=== PATIENT | male | born 1960 | race Caucasian/White ===

== ENCOUNTER 2019-06-12 11:51 | Emergency (ER) | payer OTHER ==
[2019-06-12 12:11] VITALS: RESP 18
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
[2019-06-12 12:47] LABS: Appearance,Urine Cloudy (Clear); Bacteria,Urine Moderate /hpf; Bilirubin,Urine Negative (Negative); Blood,Urine Small (Negative); Color,Urine Yellow; Glucose,Urine (UA) Negative (Negative); Ketones,Urine Trace (Negative); Leukocyte Esterase,Urine Large (Negative); Mucus,Urine Rare /hpf; Nitrite,Urine Positive (Negative); PH, Urine 5.5 (5.0-8.0); Protein,Urine 1+ (Negative); RBC,Urine 6 /hpf (0-5); Squamous Epithelial Cell,Urine 2 /hpf (0-4); Urobilinogen,Urine <2.0 mg/dL (<2.0); WBC,Urine >182 /hpf (0-5)
[2019-06-12 13:21] VITALS: TEMP 98.7
[2019-06-12] MEDS ORDERED: NITROFURANTOIN MONOHYD/M-CRYST 100 MG CAP PO STA (13:47)
[2019-06-12 15:37] VITALS: BP 135/70; PULSE 72
== END 2019-06-12 14:30 | disposition home or self-care (01) ==
LOC: EC 11:51
DX: N39.0 Urinary tract infection, site not specified (principal); M62.569 Muscle wasting and atrophy, not elsewhere classified, unspecified lower leg; R53.83 Other fatigue; E11.9 Type 2 diabetes mellitus without complications; Z87.891 Personal history of nicotine dependence; Z88.2 Allergy status to sulfonamides; Z79.84 Long term (current) use of oral hypoglycemic drugs; Z86.14 Personal history of Methicillin resistant Staphylococcus aureus infection; Z87.448 Personal history of other diseases of urinary system; Z86.2 Personal history of diseases of the blood and blood-forming organs and certain disorders involving the immune mechanism; Z99.3 Dependence on wheelchair; Z80.51 Family history of malignant neoplasm of kidney
CPT/HCPCS: 81001; 87077; 87086; 87186; 99283

== ENCOUNTER 2019-06-15 11:44 | Inpatient (IN) | payer OTHER ==
[2019-06-15] MEDS ORDERED: ACETAMINOPHEN TAB 500 MG TAB PO STA (12:38)
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
[2019-06-15] MEDS: SODIUM CHLORIDE 0.9% 500 ML 500 ML IV SCH ×3 (13:41→15:57)
--- NOTE | 2019-06-15 14:02 | XR ---
EXAMINATION TYPE: XR chest 2V DATE OF EXAM: 06/15/2019 COMPARISON: 10/31/2015 HISTORY: Fever and hypoxemia TECHNIQUE: Frontal and lateral views of the chest are obtained. FINDINGS: New pulmonary vascular congestion throughout, more pronounced on the left than the right l ikely given rotation. Mediastinum is shifted to the right secondary to rotation. Cardiomediastinal si lhouette is enlarged. Somewhat type: Ventilatory lungs on the lateral view. No sizable pleural effusi on. IMPRESSION: Pulmonary vascular congestion, correlate for congestive heart failure.
[2019-06-15] MEDS ORDERED: cefTRIAXone IN SWFI 1,000 MG/10 ML SYRINGE IVP STA (14:03)
[2019-06-15] MEDS ORDERED: PIPERACILLIN-TAZOBACTAM 3.375 GM in SODIUM CHLORIDE 0.9% 100 ML IVPB STA (14:04)
[2019-06-15 14:14] LABS: Basophils # (A) 0.3 k/uL (0-0.2); Basophils % (A) 3 %; Eosinophils % (A) 0 %; HCT 37.8 % (39.0-53.0); HGB 12.4 gm/dL (13.0-17.5); Lymphocytes # (A) 0.6 k/uL (1.0-4.8); Lymphocytes % (A) 6 %; MCH 29.2 pg (25.0-35.0); MCHC 32.7 g/dL (31.0-37.0); MCV 89.4 fL (80.0-100.0); Mean Platelet Volume 9.1; Monocytes # (A) 0.4 k/uL (0-1.0); Monocytes % (A) 4 %; Neutrophils % (A) 82 %; Platelet Count 194 k/uL (150-450); RBC 4.24 m/uL (4.30-5.90); RDW 14.5 % (11.5-15.5); WBC 9.7 k/uL (3.8-10.6)
[2019-06-15 14:21] LABS: Partial Thromboplastin Time 23.6 sec (22.0-30.0); Prothrombin Time 10.7 sec (9.0-12.0)
[2019-06-15 14:26] LABS: ALT 60 U/L (4-49); AST 50 U/L (17-59); African American GFR (CKD) >90 (>60 ml/min/1.73 sqM); Albumin 3.3 g/dL (3.5-5.0); Alkaline Phosphatase 79 U/L (38-126); Anion Gap 12 mmol/L; Blood Urea Nitrogen 20 mg/dL (9-20); Calcium 8.9 mg/dL (8.4-10.2); Carbon Dioxide 23 mmol/L (22-30); Chloride 95 mmol/L (98-107); Glucose 371 mg/dL (74-99); Non-African American GFR(CKD) >90 (>60 ml/min/1.73 sqM); Potassium 4.5 mmol/L (3.5-5.1); Sodium 130 mmol/L (137-145); Total Bilirubin 0.9 mg/dL (0.2-1.3); Total Protein 6.1 g/dL (6.3-8.2)
[2019-06-15] MEDS ORDERED: FUROSEMIDE 10 MG/ML 4 ML VIAL IV STA (15:09)
[2019-06-15 15:12] LABS: Appearance,Urine Cloudy (Clear); Bacteria,Urine Rare /hpf; Bilirubin,Urine Negative (Negative); Blood,Urine Trace (Negative); Budding Yeast,Urine Rare /hpf; Color,Urine Yellow; Glucose,Urine (UA) 4+ (Negative); Hyaline Casts,Urine 19 /lpf (0-2); Ketones,Urine Negative (Negative); Leukocyte Esterase,Urine Trace (Negative); Mucus,Urine Rare /hpf; Nitrite,Urine Negative (Negative); Protein,Urine 2+ (Negative); RBC,Urine 3 /hpf (0-5); Specific Gravity,Urine 1.025 (1.001-1.035); Sperm,Urine Rare /hpf; Squamous Epithelial Cell,Urine 1 /hpf (0-4); Urobilinogen,Urine <2.0 mg/dL (<2.0); WBC,Urine 14 /hpf (0-5)
[2019-06-15] MEDS ORDERED: PIPERACILLIN-TAZOBACTAM 3.375 GM in SODIUM CHLORIDE 0.9% 100 ML IVPB SCH (16:00)
[2019-06-15] MEDS ORDERED: AZITHROMYCIN 500 MG in SODIUM CHLORIDE 0.9% 250 ML IVPB STA (16:42)
[2019-06-15] MEDS ORDERED: HEPARIN SODIUM,PORCINE 5,000 UNIT/ML 1 ML VIAL IV ONE (17:22)
[2019-06-15] MEDS ORDERED: HEPARIN SODIUM,PORCINE 5,000 UNIT/ML 1 ML VIAL IV PRN (17:22)
[2019-06-15] MEDS ORDERED: HEPARIN SOD,PORK IN 0.45% NACL 25,000 UNIT in 0.45% NACL 1 250ML.BAG IV SCH (17:30)
[2019-06-15] MEDS ORDERED: VANCOMYCIN IV PER PHARMACY 1 EACH MISC MISCELLANE PRN (17:32)
--- NOTE | 2019-06-15 17:46 | CT ---
EXAMINATION TYPE: CT chest angio for PE DATE OF EXAM: 06/15/2019 COMPARISON: None HISTORY: Fever, shortness of breath. CT DLP: 978.4 mGycm Automated exposure control for dose reduction was used. CONTRAST: Performed with IV Contrast, patient injected with 100 mL of Isovue 370. There are 3-D post processed images. FINDINGS: There is intact thoracic aorta. There is no aneurysm or dissection. Heart appears fairly normal. Ther e is no pericardial effusion. There is no pleural effusion. There is no mediastinal adenopathy. There are no hilar masses. There are large central pulmonary arteries. There is some mild subsegmental ate lectasis at the lung bases. There is no suspicious pulmonary mass. There is fairly normal contrast opacification of the pulmonary arteries. I see no filling defect. The bony thorax is intact. There is no thoracic compression fracture. I see no bony destructive process. IMPRESSION: No evidence of pulmonary embolism. Mild subsegmental atelectasis at the lung bases. Normal heart. Lar ge central pulmonary arteries could relate to pulmonary hypertension.
[2019-06-15] MEDS ORDERED: KETOROLAC 30 MG/ML 1 ML VIAL IVP PRN (18:03)
[2019-06-15] MEDS ORDERED: IBUPROFEN 400 MG TAB PO PRN (18:03)
[2019-06-15] MEDS ORDERED: NALOXONE 0.4 MG/ML 1 ML VIAL IV PRN (18:03)
[2019-06-15] MEDS ORDERED: ACETAMINOPHEN TAB 325 MG TAB PO PRN (18:03)
[2019-06-15] MEDS ORDERED: MORPHINE SULFATE 4 MG/ML SYRINGE IV PRN (18:03)
[2019-06-15] MEDS ORDERED: ASPIRIN 325 MG TAB PO STA (18:06)
[2019-06-15] MEDS ORDERED: VANCOMYCIN 2,000 MG in SODIUM CHLORIDE 0.9% 500 ML 500 ML IVPB ONE ×2 (18:45→22:15)
[2019-06-15 21:41] LABS: Glucose,Whole Blood 327 mg/dL (75-99)
[2019-06-15] MEDS: SODIUM CHLORIDE 0.9% 1,000 ML IV SCH ×2 (21:47→22:09)
[2019-06-15] MEDS: FUROSEMIDE 10 MG/ML 4 ML VIAL IV SCH (22:03)
[2019-06-15] MEDS: INSULIN ASPART (NovoLOG) 100 UNIT/ML VIAL SQ SCH (22:04)
[2019-06-16] MEDS ORDERED: ONDANSETRON 4 MG/2 ML VIAL IVP PRN (01:26)
[2019-06-16] MEDS: PIPERACILLIN-TAZOBACTAM 3.375 GM in SODIUM CHLORIDE 0.9% 100 ML IVPB SCH ×2 (01:41→11:40)
[2019-06-16] MEDS: SODIUM CHLORIDE 0.9% 1,000 ML IV SCH ×2 (04:36→12:51)
[2019-06-16] MEDS: FUROSEMIDE 10 MG/ML 4 ML VIAL IV SCH ×3 (05:53→20:49)
[2019-06-16] MEDS ORDERED: VANCOMYCIN 2,000 MG in SODIUM CHLORIDE 0.9% 500 ML 500 ML IVPB SCH (06:00)
[2019-06-16 06:30] LABS: Glucose,Whole Blood 290 mg/dL (75-99)
[2019-06-16] MEDS: INSULIN ASPART (NovoLOG) 100 UNIT/ML VIAL SQ SCH ×4 (06:33→22:22)
[2019-06-16 09:05] LABS: HGB 11.8 gm/dL (13.0-17.5); MCH 28.9 pg (25.0-35.0); MCHC 31.8 g/dL (31.0-37.0); MCV 90.7 fL (80.0-100.0); Mean Platelet Volume 9.2; Platelet Count 217 k/uL (150-450); RBC 4.08 m/uL (4.30-5.90); RDW 14.7 % (11.5-15.5); WBC 10.7 k/uL (3.8-10.6)
[2019-06-16 10:54] LABS: Band Neutrophils % 3 %; Lymphocytes # (M) 0.75 k/uL (1.0-4.8); Metamyelocytes # (M) 0.11 k/uL (0); Metamyelocytes % 1 %; Monocytes # (M) 0.86 k/uL (0-1.0); Neutrophils % (M) 83 %; Nucleated Red Blood Cells 0 /100 WBC (0-0); Total Cells Counted 200
[2019-06-16 11:00] LABS: Anisocytosis (M) Present; Poikilocytosis (M) Present; Toxic Granulation Present
[2019-06-16] MEDS ORDERED: HEPARIN SODIUM,PORCINE 5,000 UNIT/ML 1 ML VIAL IV STA (11:26)
[2019-06-16] MEDS ORDERED: SODIUM CHLORIDE 0.9% 1,000 ML IV SCH (11:30)
[2019-06-16 12:06] LABS: Glucose,Whole Blood 242 mg/dL (75-99)
[2019-06-16] MEDS: MEROPENEM 2 GM in SODIUM CHLORIDE 0.9% 100 ML IVPB SCH ×2 (12:51→20:49)
--- NOTE | 2019-06-16 13:00 | ECHOF ---
Referral Reason:CHF? MEASUREMENTS -------- HEIGHT: 182.9 cm WEIGHT: 127.0 kg BP: 147/94 RVIDd: 4.3 cm (< 3.3) IVSd: 1.8 cm (0.6 - 1.1) LVIDd: 3.6 cm (3.9 - 5.3) LVPWd: 1.4 cm (0.6 - 1.1) IVSs: 1.5 cm LVIDs: 3.1 cm LVPWs: 1.2 cm Ao Diam: 3.8 cm (2.0 - 3.7) MV EXCURSION: 26.551 mm (> 18.000) MV EF SLOPE: 96 mm/s (70 - 150) EPSS: 0.3 cm MV E Higinio: 1.31 m/s MV DecT: 185 ms MV A Higinio: 1.17 m/s MV E/A Ratio: 1.12 RAP: 5.00 mmHg RVSP: 40.65 mmHg FINDINGS -------- Sinus rhythm. Morbid Obesity This was a techncally difficult study with suboptimal views, , Lumason utilized for enhancement of im ages. The left ventricular size is normal. Left ventricular wall thickness is normal. Overall left vent ricular systolic function is mild-moderately impaired with, an EF between 40 - 45 %. The right ventricle is severely enlarged. The left atrial size is normal. The right atrial size is normal. 5.0mg OF Lumason UTLIZED: 2 OR MORE WALL SEGMENTS NOT VISUALIZED. There is mild aortic valve sclerosis. There is no evidence of aortic regurgitation. Mild mitral annular calcification present. Mild mitral regurgitation is present. Mild tricuspid regurgitation present. There is mild pulmonary hypertension. The right ventricular systolic pressure, as measured by Doppler, is 40.65mmHg. The pulmonic valve was not well visualized. The aortic root size is normal. Echo free space represents a pericardial fat pad. CONCLUSIONS -------- 1. Sinus rhythm. 2. Morbid Obesity 3. This was a techncally difficult study with suboptimal views, , Lumason utilized for enhancement of images. 4. The left ventricular size is normal. 5. Left ventricular wall thickness is normal. 6. Overall left ventricular systolic function is mild-moderately impaired with, an EF between 40 - 45 %. 7. The right ventricle is severely enlarged. 8. The left atrial size is normal. 9. The right atrial size is normal. 10. 5.0mg OF Lumason UTLIZED: 2 OR MORE WALL SEGMENTS NOT VISUALIZED. 11. There is mild aortic valve sclerosis. 12. Mild mitral annular calcification present. 13. Mild mitral regurgitation is present. 14. Mild tricuspid regurgitation present. 15. There is mild pulmonary hypertension. 16. The right ventricular systolic pressure, as measured by Doppler, is 40.65mmHg. 17. The pulmonic valve was not well visualized. 18. The aortic root size is normal. 19. Echo free space represents a pericardial fat pad. SCHO[employer]GE PROGRAM TEACHER: Dorothy Richardson RDCS
[2019-06-16 14:12] VITALS: BMI 37.3
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
[2019-06-16 17:36] LABS: Glucose,Whole Blood 287 mg/dL (75-99)
[2019-06-16] MEDS: FAMOTIDINE 20 MG TAB PO SCH (20:49)
[2019-06-16 21:22] LABS: Glucose,Whole Blood 226 mg/dL (75-99)
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
[2019-06-16] MEDS ORDERED: BISACODYL 10 MG SUPP RECTAL PRN (22:09)
[2019-06-17] MEDS ORDERED: MEROPENEM 1 GM in SODIUM CHLORIDE 0.9% 100 ML IVPB SCH ×2
[2019-06-17] MEDS: MEROPENEM 1 GM in SODIUM CHLORIDE 0.9% 100 ML IVPB SCH ×3 (03:44→20:35)
[2019-06-17] MEDS ORDERED: VANCOMYCIN TROUGH DUE 1 EACH MISC MISCELLANE ONE (05:00)
[2019-06-17 06:02] LABS: Glucose,Whole Blood 217 mg/dL (75-99)
[2019-06-17] MEDS: INSULIN ASPART (NovoLOG) 100 UNIT/ML VIAL SQ SCH ×4 (06:25→20:37)
[2019-06-17 06:40] LABS: Basophils # (A) 0.1 k/uL (0-0.2); Basophils % (A) 1 %; Eosinophils # (A) 0.1 k/uL (0-0.7); Eosinophils % (A) 1 %; Lymphocytes # (A) 0.8 k/uL (1.0-4.8); Lymphocytes % (A) 8 %; MCH 28.6 pg (25.0-35.0); MCHC 31.5 g/dL (31.0-37.0); MCV 90.7 fL (80.0-100.0); Mean Platelet Volume 8.6; Monocytes # (A) 0.4 k/uL (0-1.0); Monocytes % (A) 3 %; Neutrophils # (A) 9.3 k/uL (1.3-7.7); Neutrophils % (A) 84 %; Platelet Count 289 k/uL (150-450); RBC 4.19 m/uL (4.30-5.90); RDW 14.4 % (11.5-15.5); WBC 11.1 k/uL (3.8-10.6)
[2019-06-17 06:54] LABS: African American GFR (CKD) >90 (>60 ml/min/1.73 sqM); Anion Gap 7 mmol/L; Blood Urea Nitrogen 23 mg/dL (9-20); Calcium 7.9 mg/dL (8.4-10.2); Carbon Dioxide 31 mmol/L (22-30); Chloride 98 mmol/L (98-107); Glucose 217 mg/dL (74-99); Non-African American GFR(CKD) >90 (>60 ml/min/1.73 sqM); Potassium 4.1 mmol/L (3.5-5.1); Sodium 136 mmol/L (137-145)
--- NOTE | 2019-06-17 09:43 | XR ---
EXAMINATION TYPE: XR chest 2V DATE OF EXAM: 06/17/2019 COMPARISON: 06/15/2019 HISTORY: Shortness of breath TECHNIQUE: Frontal and lateral views of the chest are obtained. FINDINGS: Cardiomediastinal silhouette is enlarged. Multifocal patchy opacities are seen on the late ral view, likely edema. No sizable pleural effusion or pneumothorax. Osseous structures are grossly i ntact. IMPRESSION: Multifocal centralized patchy opacities on the lateral view may represent pulmonary shyam a as the cardiomediastinal silhouette is again enlarged. Correlate for congestive heart failure.
[2019-06-17] MEDS: FAMOTIDINE 20 MG TAB PO SCH ×2 (09:59→20:36)
[2019-06-17] MEDS: ENOXAPARIN 40 MG/0.4 ML SYRINGE SQ SCH ×2 (09:59→10:19)
[2019-06-17] MEDS: FUROSEMIDE 10 MG/ML 4 ML VIAL IV SCH ×2 (10:00→20:36)
[2019-06-17 12:11] LABS: Glucose,Whole Blood 232 mg/dL (75-99)
--- NOTE | 2019-06-17 15:40 | P.PN ---
Subjective Progress Note Date: 06/17/19 Principal diagnosis: 59.-year-old male came in with fever and body aches. Patient does straight catheter is a has been doing this for years patient was admitted in the past for urinary tract infection with multiple bacteria drug-resistant Pseudomonas. Patient was seen in ER recently about the 3-4 days ago at the time urine cultures were done showing E. coli which is years. Coli. Patient is septic and hyponatremic. patient has mildly elevated troponin seconded to sepsis. Patient was later found to have bacteremia with gram-negative rods. Patient was started on meropenem because of ESBL Zosyn and vancomycin will risk and urine. Patient does have a blister in the left leg although doesn't appear to be infected and the right leg there is some redness in the first toe but doesn't appear to be infected either. There is mild elevation of BNP there is a concern about the congestive heart failure because of bronchovascular prominence on the chest x-ray. 06/17/2019 Patient is lying in bed in a semi-upright position and is stating he is short of breath with no improvement from yesterday. Blood cultures continue to show E. coli and repeat blood cultures will be done. Infectious disease is following. Cardiology is also following. Patient is currently maintained on IV antibiotics in the form of meropenem and will continue at this time. Patient will also continue on IV diuresis. Repeat chest x-ray today shows multifocal centralize patchy opacities that may represent pulmonary edema. Patient normally straight caths himself a few times a day but has been having difficulty given his current situation and worsening shortness of breath and an indwelling Du catheter was placed. Patient does have a history of frequent urinary tract infections. Objective - Vital Signs Vital signs: Vital Signs Temp 99.2 F 06/17/19 11:46 Pulse 108 H 06/17/19 11:46 Resp 20 06/17/19 11:46 BP 180/89 06/17/19 11:46 Pulse Ox 93 L 06/17/19 11:46 Intake & Output 06/16/19 06/17/19 06/17/19 18:59 06:59 18:59 Intake Total 369.316 200 360 Output Total 1780 800 200 Balance -1410.684 -600 160 Weight 125 kg 152.5 kg Intake: Intake, IV Titration 129.316 200 Amount Heparin Sod,Pork in 0.45% 129.316 NaCl 25,000 unit In 0.45 % NaCl 1 250ml.bag @ 7. 874 UNITS/KG/HR 10 mls/hr IV .Q24H [facility] Rx#: [id number] Meropenem 2 gm In Sodium 200 Chloride 0.9% 100 ml @ 200 mls/hr IVPB Q8H [facility] Rx#:[id number] Oral 240 360 Output: Urine 1780 800 200 Other: Voiding Method Indwelling Catheter Indwelling Catheter Indwelling Catheter - Exam GENERAL: The patient is alert and oriented x3, not in any acute distress. Obese HEENT: Pupils are round and equally reacting to light. EOMI. No scleral icterus. No conjunctival pallor. Normocephalic, atraumatic. No pharyngeal erythema. No thyromegaly. CARDIOVASCULAR: S1 and S2 present. No murmurs, rubs, or gallops. PULMONARY: Diminished breath sounds at the bases, no wheezing or crackles noted. ABDOMEN: Soft, nontender, nondistended, normoactive bowel sounds. No palpable organomegaly. MUSCULOSKELETAL: No joint swelling or deformity. EXTREMITIES: No cyanosis, clubbing, or pedal edema. NEUROLOGICAL: Gross neurological examination did not reveal any new focal deficits. Patient does have paraplegia of lower limbs SKIN: Patient has a blister on the left calcaneus and some redness in the right great toe - Labs CBC & Chem 7: 06/17/19 05:21 06/17/19 05:21 Labs: Abnormal Lab Results - Last 24 Hours (Table) 06/16/19 06/16/19 06/17/19 Range/Units 17:34 21:21 05:21 WBC 11.1 H (3.8-10.6) k/uL RBC 4.19 L (4.30-5.90) m/uL Hgb 12.0 L (13.0-17.5) gm/dL Hct 38.0 L (39.0-53.0) % Neutrophils # 9.3 H (1.3-7.7) k/uL Lymphocytes # 0.8 L (1.0-4.8) k/uL Sodium (137-145) mmol/L Carbon Dioxide (22-30) mmol/L BUN (9-20) mg/dL Creatinine (0.66-1.25) mg/dL Glucose (74-99) mg/dL POC Glucose (mg/dL) 287 H 226 H (75-99) mg/dL Calcium (8.4-10.2) mg/dL 06/17/19 06/17/19 06/17/19 Range/Units 05:21 06:01 12:02 WBC (3.8-10.6) k/uL RBC (4.30-5.90) m/uL Hgb (13.0-17.5) gm/dL Hct (39.0-53.0) % Neutrophils # (1.3-7.7) k/uL Lymphocytes # (1.0-4.8) k/uL Sodium 136 L (137-145) mmol/L Carbon Dioxide 31 H (22-30) mmol/L BUN 23 H (9-20) mg/dL Creatinine 0.62 L (0.66-1.25) mg/dL Glucose 217 H (74-99) mg/dL POC Glucose (mg/dL) 217 H 232 H (75-99) mg/dL Calcium 7.9 L (8.4-10.2) mg/dL Microbiology - Last 24 Hours (Table) 06/15/19 13:13 Blood Culture Gram Stain - Final Blood Blood Culture - Final Escherichia coli 06/16/19 11:51 Blood Culture Gram Stain - Preliminary Blood Blood Culture - Preliminary Escherichia coli 06/16/19 11:51 Blood Culture - Final Blood 06/15/19 Unknown Urine Culture - Preliminary Urine,Clean Catch Assessment and Plan Assessment: -Severe sepsis and bacteremia secondary to possible urinary tract infection patient has gram-negative rods most probably E. coli which he had a urinary tract infection recently patient was switched to meropenem and will continue at this time. Infectious disease is following. -Hyponatremia possibility of hypervolemic hyponatremia we'll give him Lasix today and will check his creatinine tomorrow IV fluids were discontinued. Creatinine today is 0.62 and will continue with IV Lasix at this time. -Congestive heart failure chronic systolic dysfunction with possibly of mild acute exacerbation. Echo was done showing overall left ventricular systolic function is mild to moderately impaired with an EF between 40-45% -Elevated troponin secondary to sepsis cardiology was consulted. -Type 2 diabetes mellitus: Patient will be resumed on his home regimen along with sliding scale -DVT in the past presently not on any anticoagulation -Paraplegia: Supportive care for that -DVT prophylaxis with Lovenox -GI prophylaxis with Pepcid
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
[2019-06-17 16:51] LABS: Glucose,Whole Blood 306 mg/dL (75-99)
[2019-06-17] MEDS: CARVEDILOL 6.25 MG TAB PO SCH (17:40)
[2019-06-17 20:29] LABS: Glucose,Whole Blood 227 mg/dL (75-99)
--- NOTE | 2019-06-17 23:16 | PN ---
PROGRESS NOTE DATE OF SERVICE: 06/17/2019 REASON FOR FOLLOWUP: ESBL E coli bacteremia and UTI. INTERVAL HISTORY: The patient is currently afebrile. The patient has been breathing comfortably. Denies having any chest pain or shortness of breath or cough. No abdominal pain and diarrhea. PHYSICAL EXAMINATION: Blood pressure 117/60 with a pulse of 102, temperature 99.7. He is 97% on 2 L nasal cannula. General description is a middle-aged male lying in bed in no distress. RESPIRATORY SYSTEM: Unlabored breathing. Clear to auscultation anteriorly. HEART: S1, S2. Regular rate and rhythm. ABDOMEN: Soft. No tenderness. LABS: Hemoglobin is 12, white count 11.1. BUN of 23, creatinine 0.62. Blood culture from 06/16/19 positive. Blood culture done this morning is currently pending. DIAGNOSTIC IMPRESSION AND PLAN: Patient with Escherichia coli bacteremia. The pathogen in the blood is not ESBL compared to what he had in the urine on 06/12/19. We will keep the patient on meropenem at this point while waiting for the blood culture of 06/16/19 to be completed. Ultrasound of the kidneys to make sure no evidence of any obstructive uropathy or abscess. Once his blood cultures are negative, may get a midline for outpatient IV antibiotic therapy. Continue with supportive care. MMODL / IJN: [id number] /
[2019-06-18] MEDS: MEROPENEM 1 GM in SODIUM CHLORIDE 0.9% 100 ML IVPB SCH ×2 (04:36→12:13)
[2019-06-18] MEDS: INSULIN ASPART (NovoLOG) 100 UNIT/ML VIAL SQ SCH ×4 (06:20→21:05)
[2019-06-18] MEDS: CARVEDILOL 6.25 MG TAB PO SCH ×2 (06:20→18:10)
[2019-06-18 06:21] LABS: Glucose,Whole Blood 243 mg/dL (75-99)
[2019-06-18 06:40] LABS: Basophils # (A) 0.1 k/uL (0-0.2); Basophils % (A) 0 %; Eosinophils # (A) 0.1 k/uL (0-0.7); Eosinophils % (A) 1 %; HCT 40.1 % (39.0-53.0); HGB 12.6 gm/dL (13.0-17.5); Lymphocytes # (A) 1.1 k/uL (1.0-4.8); Lymphocytes % (A) 8 %; MCH 28.4 pg (25.0-35.0); MCHC 31.4 g/dL (31.0-37.0); MCV 90.4 fL (80.0-100.0); Mean Platelet Volume 7.9; Monocytes # (A) 0.5 k/uL (0-1.0); Monocytes % (A) 3 %; Neutrophils # (A) 12.1 k/uL (1.3-7.7); Neutrophils % (A) 84 %; Platelet Count 331 k/uL (150-450); RBC 4.44 m/uL (4.30-5.90); RDW 14.4 % (11.5-15.5); WBC 14.3 k/uL (3.8-10.6)
--- NOTE | 2019-06-18 08:23 | US ---
EXAMINATION TYPE: US kidneys/renal and bladder DATE OF EXAM: 06/18/2019 COMPARISON: KUB CLINICAL HISTORY: uti AND bacteremia. CHF, sepsis, and history of left lower pole renal calcification EXAM MEASUREMENTS: Right Kidney: 13.5 x 6.2 x 6.6 cm Left Kidney: 13.3 x 6.9 x 6.9 cm Post Void Residual Volume: not assessed as indwelling bladder catheter is present Right Kidney: No hydronephrosis or masses seen; crescent shaped area is seen adjacent to mid lower re nal cortex and suggests sonographic sweat sign for renal failure Left Kidney: No hydronephrosis or masses seen; crescent shaped area is seen adjacent to mid lower [place] al cortex and suggests sonographic sweat sign for renal failure Bladder: indwelling bladder catheter is noted within and therefore urinary bladder is nondistended an d not visualized. There is no evidence for hydronephrosis at this point in time. No nephrolithiasis is seen. No morris s are identified. IMPRESSION: Sonographic findings bilaterally suggesting renal failure with sonographic "sweat sign". No hydronephrosis of either kidney.
[2019-06-18 09:18] LABS: African American GFR (CKD) >90 (>60 ml/min/1.73 sqM); Anion Gap 11 mmol/L; Blood Urea Nitrogen 21 mg/dL (9-20); Carbon Dioxide 28 mmol/L (22-30); Chloride 98 mmol/L (98-107); Glucose 252 mg/dL (74-99); Non-African American GFR(CKD) >90 (>60 ml/min/1.73 sqM); Potassium 4.1 mmol/L (3.5-5.1); Sodium 137 mmol/L (137-145)
[2019-06-18] MEDS: ENOXAPARIN 40 MG/0.4 ML SYRINGE SQ SCH (09:20)
[2019-06-18] MEDS: FUROSEMIDE 10 MG/ML 4 ML VIAL IV SCH (09:24)
[2019-06-18] MEDS: FAMOTIDINE 20 MG TAB PO SCH ×2 (09:24→21:05)
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
[2019-06-18] MEDS: LISINOPRIL 5 MG TAB PO SCH (12:14)
[2019-06-18 12:32] LABS: Glucose,Whole Blood 282 mg/dL (75-99)
--- NOTE | 2019-06-18 14:31 | P.PN ---
Subjective Progress Note Date: 06/18/19 Principal diagnosis: 59.-year-old male came in with fever and body aches. Patient does straight catheter is a has been doing this for years patient was admitted in the past for urinary tract infection with multiple bacteria drug-resistant Pseudomonas. Patient was seen in ER recently about the 3-4 days ago at the time urine cultures were done showing E. coli which is years. Coli. Patient is septic and hyponatremic. patient has mildly elevated troponin seconded to sepsis. Patient was later found to have bacteremia with gram-negative rods. Patient was started on meropenem because of ESBL Zosyn and vancomycin will risk and urine. Patient does have a blister in the left leg although doesn't appear to be infected and the right leg there is some redness in the first toe but doesn't appear to be infected either. There is mild elevation of BNP there is a concern about the congestive heart failure because of bronchovascular prominence on the chest x-ray. 06/17/2019 Patient is lying in bed in a semi-upright position and is stating he is short of breath with no improvement from yesterday. Blood cultures continue to show E. coli and repeat blood cultures will be done. Infectious disease is following. Cardiology is also following. Patient is currently maintained on IV antibiotics in the form of meropenem and will continue at this time. Patient will also continue on IV diuresis. Repeat chest x-ray today shows multifocal centralize patchy opacities that may represent pulmonary edema. Patient normally straight caths himself a few times a day but has been having difficulty given his current situation and worsening shortness of breath and an indwelling Du catheter was placed. Patient does have a history of frequent urinary tract infections. 06/18/2019 Patient is lying in bed stating that his shortness of breath has slightly improved. Blood cultures continue to show E. coli with repeat blood cultures from the being negative thus far. Will repeat blood cultures daily until clearance. Infectious disease is following. Antibiotics have been transitioned to ceftriaxone and will continue at this time. Patient will likely need IV anti biotic therapy in the outpatient setting due to bacteremia. Patient denies any chest pain or palpitations at this time. Patient is afebrile. Patient denies any nausea or vomiting and has been tolerating diet. Patient's IV diuretics are being transitioned oral today. Objective - Vital Signs Vital signs: Vital Signs Temp 98.4 F 06/18/19 11:45 Pulse 95 06/18/19 11:45 Resp 18 06/18/19 11:45 BP 134/82 06/18/19 11:45 Pulse Ox 94 L 06/18/19 11:45 Intake & Output 06/17/19 06/18/19 06/18/19 18:59 06:59 18:59 Intake Total 1570 1178 Output Total 200 900 Balance 1370 -900 1178 Weight 151 kg Intake: Intake, IV Titration 100 100 Amount Meropenem 1 gm In Sodium 100 100 Chloride 0.9% 100 ml @ 200 mls/hr IVPB Q8H [facility] Rx#:[id number] Oral 1470 1078 Output: Urine 200 900 Other: Voiding Method Indwelling Catheter Indwelling Catheter Indwelling Catheter - Exam GENERAL: The patient is alert and oriented x3, not in any acute distress. Obese HEENT: Pupils are round and equally reacting to light. EOMI. No scleral icterus. No conjunctival pallor. Normocephalic, atraumatic. No pharyngeal erythema. No thyromegaly. CARDIOVASCULAR: S1 and S2 present. No murmurs, rubs, or gallops. PULMONARY: Diminished breath sounds at the bases, no wheezing or crackles noted. ABDOMEN: Soft, nontender, nondistended, normoactive bowel sounds. No palpable organomegaly. MUSCULOSKELETAL: No joint swelling or deformity. EXTREMITIES: No cyanosis, clubbing, or pedal edema. NEUROLOGICAL: Gross neurological examination did not reveal any new focal deficits. Patient does have paraplegia of lower limbs SKIN: Patient has a blister on the left calcaneus and some redness in the right great toe - Labs CBC & Chem 7: 06/18/19 06:02 06/18/19 06:02 Labs: Abnormal Lab Results - Last 24 Hours (Table) 06/17/19 06/17/19 06/18/19 Range/Units 16:39 20:28 06:02 WBC 14.3 H (3.8-10.6) k/uL Hgb 12.6 L (13.0-17.5) gm/dL Neutrophils # 12.1 H (1.3-7.7) k/uL BUN (9-20) mg/dL Creatinine (0.66-1.25) mg/dL Glucose (74-99) mg/dL POC Glucose (mg/dL) 306 H 227 H (75-99) mg/dL Calcium (8.4-10.2) mg/dL 06/18/19 06/18/19 06/18/19 Range/Units 06:02 06:19 12:28 WBC (3.8-10.6) k/uL Hgb (13.0-17.5) gm/dL Neutrophils # (1.3-7.7) k/uL BUN 21 H (9-20) mg/dL Creatinine 0.46 L (0.66-1.25) mg/dL Glucose 252 H (74-99) mg/dL POC Glucose (mg/dL) 243 H 282 H (75-99) mg/dL Calcium 8.0 L (8.4-10.2) mg/dL Microbiology - Last 24 Hours (Table) 06/16/19 11:51 Blood Culture Gram Stain - Final Blood Blood Culture - Final Escherichia coli 06/17/19 05:21 Blood Culture - Preliminary Blood No Growth after 24 hours 06/15/19 Unknown Urine Culture - Final Urine,Clean Catch 06/15/19 13:13 Blood Culture Gram Stain - Final Blood Blood Culture - Final Escherichia coli Assessment and Plan Assessment: -Severe sepsis and bacteremia secondary to possible urinary tract infection patient has gram-negative rods most probably E. coli which he had a urinary tract infection recently patient was switched to meropenem. IV antibiotics being transitioned to Rocephin and will continue at this time. Will await repeat blood culture finalization to ensure bacteremia has resolved. Infectious disease is following. -Hyponatremia possibility of hypervolemic hyponatremia we'll give him Lasix today and will check his creatinine tomorrow IV fluids were discontinued. Creatinine today is 0.46 and will continue with oral Lasix at this time. -Congestive heart failure chronic systolic dysfunction with possibly of mild acute exacerbation. Echo was done showing overall left ventricular systolic function is mild to moderately impaired with an EF between 40-45% -Elevated troponin secondary to sepsis cardiology was consulted. -Type 2 diabetes mellitus: Patient will be resumed on his home regimen along with sliding scale -DVT in the past presently not on any anticoagulation -Paraplegia: Supportive care for that -DVT prophylaxis with Lovenox -GI prophylaxis with Pepcid
[2019-06-18 17:43] LABS: Glucose,Whole Blood 272 mg/dL (75-99)
[2019-06-18 20:19] LABS: Glucose,Whole Blood 245 mg/dL (75-99)
--- NOTE | 2019-06-18 22:46 | PN ---
PROGRESS NOTE DATE OF SERVICE: 06/18/2019 REASON FOR FOLLOWUP: E coli bacteremia secondary to urinary source. INTERVAL HISTORY: The patient is currently afebrile, has been breathing comfortably. The patient denies having any chest pain. No shortness or cough. No nausea or vomiting, no abdominal pain. No diarrhea. PHYSICAL EXAMINATION: Blood pressure 141/82 with a pulse of 91. Temperature 98.7. He is 93% on room air. General description is a middle-aged male lying in bed in no distress. Respiratory system: Unlabored breathing. Clear to auscultation anteriorly. Heart S1, S2. Regular rate and rhythm. ABDOMEN: Soft. No tenderness. LABS: Hemoglobin is 12.6. white count 14.3. BUN 21, creatinine 0.46. Blood culture 06/17 has been negative. Abdominal bladder ultrasound, renal failure , but no hydronephrosis. DIAGNOSTIC IMPRESSION AND PLAN: Patient with E coli bacteremia. Concern was for urinary source in this patient who self catheterizes himself though his urine was not significantly positive. Patient with evidence of worsening of the white count and concern for possible abdominal source. A CT abdominal and pelvis will be ordered. Flagyl will be added and we will monitor his clinical course closely. MMODL / IJN: [id number] /
[2019-06-19] MEDS: metroNIDAZOLE 500 MG TAB PO SCH ×4 (01:42→21:43)
[2019-06-19 06:22] LABS: Glucose,Whole Blood 285 mg/dL (75-99)
[2019-06-19] MEDS: CARVEDILOL 6.25 MG TAB PO SCH ×2 (06:40→17:36)
[2019-06-19] MEDS: INSULIN ASPART (NovoLOG) 100 UNIT/ML VIAL SQ SCH ×4 (06:40→21:43)
[2019-06-19 06:53] LABS: Basophils # (A) 0.4 k/uL (0-0.2); Basophils % (A) 3 %; Eosinophils # (A) 0.2 k/uL (0-0.7); Eosinophils % (A) 2 %; HCT 37.4 % (39.0-53.0); HGB 12.2 gm/dL (13.0-17.5); Lymphocytes # (A) 0.8 k/uL (1.0-4.8); Lymphocytes % (A) 6 %; MCH 29.3 pg (25.0-35.0); MCHC 32.5 g/dL (31.0-37.0); MCV 90.2 fL (80.0-100.0); Monocytes # (A) 0.9 k/uL (0-1.0); Monocytes % (A) 7 %; Neutrophils # (A) 10.3 k/uL (1.3-7.7); Neutrophils % (A) 80 %; Platelet Count 300 k/uL (150-450); RBC 4.15 m/uL (4.30-5.90); RDW 14.6 % (11.5-15.5)
[2019-06-19 07:02] LABS: African American GFR (CKD) >90 (>60 ml/min/1.73 sqM); Anion Gap 9 mmol/L; Blood Urea Nitrogen 24 mg/dL (9-20); Calcium 7.7 mg/dL (8.4-10.2); Carbon Dioxide 29 mmol/L (22-30); Chloride 98 mmol/L (98-107); Glucose 275 mg/dL (74-99); Non-African American GFR(CKD) >90 (>60 ml/min/1.73 sqM); Potassium 3.4 mmol/L (3.5-5.1); Sodium 136 mmol/L (137-145)
[2019-06-19] MEDS: ENOXAPARIN 40 MG/0.4 ML SYRINGE SQ SCH ×2 (08:22→08:24)
[2019-06-19] MEDS: FUROSEMIDE 40 MG TAB PO SCH (08:22)
[2019-06-19] MEDS: FAMOTIDINE 20 MG TAB PO SCH ×2 (08:22→21:43)
[2019-06-19] MEDS: IOPAMIDOL CONTRAST (ORAL USE) VIAL PO PRN ×2 (08:38→09:29)
--- NOTE | 2019-06-19 11:06 | CT ---
EXAMINATION TYPE: CT abdomen pelvis w con DATE OF EXAM: 06/19/2019 REFERENCE: NONE HISTORY: e.coli bacteremia CT DLP: 4327.4 mGy Automated exposure control for dose reduction was used. TECHNIQUE: Helical acquisition through the abdomen and pelvis was obtained following the oral ingesti on of with Oral Contrast and following intravenous administration of 100 mL of Isovue 300. The data w as reformatted in axial, coronal and sagittal projections. FINDINGS: There is dependent atelectasis in the dependent portions of the lungs. There is no pleural or pericardial fluid. The heart is minimally enlarged. Within the abdomen, the liver is prominent measuring 24 cm. It is slightly low in attenuation and may be fatty infiltrated. The spleen and gallbladder are normal. Both adrenal glands are normal. The pancreas is unremarkable. The right kidney is normal. There is a low attenuating lesion in the lower pole of the left kidney wh ich does not have the appearance of a simple cyst. There is moderate atheromatous calcification of the visualized arterial tree. There is no significant retroperitoneal, iliac or inguinal adenopathy. There is a Du catheter present within the bladder. Much of the sigmoid colon is collapsed. This makes it difficult to assess colonic wall thickness. The remainder the colon is unremarkable. The appendix is normal. Small bowel caliber is within normal limits. There is no free fluid and there is no free air. There is degenerative disc disease and hypertrophic spondylosis present at L4-5. There is also some m ild facet arthropathy at this level. No bony destructive lesion is seen. IMPRESSION: 1. MILD HEPATOMEGALY. 2. LESION IN THE LOWER POLE OF THE LEFT KIDNEY DOES NOT MEET THE REQUIREMENTS OF A SIMPLE CYST. ULTRA SOUND INVESTIGATION WOULD BE SUGGESTED. 3. CLASS OF MUCH OF THE SIGMOID COLON MAKES IT DIFFICULT TO ASSESS COLONIC WALL THICKENING. PLEASE CO RRELATE CLINICALLY TO EXCLUDE COLITIS. 4. MILD DEGENERATIVE CHANGE WITHIN THE SPINE.
[2019-06-19 11:50] LABS: Glucose,Whole Blood 296 mg/dL (75-99)
[2019-06-19] MEDS: LISINOPRIL 5 MG TAB PO SCH (12:07)
[2019-06-19] MEDS ORDERED: POTASSIUM CHLORIDE ER 20 MEQ TAB.ER PO STA (12:22)
--- NOTE | 2019-06-19 15:46 | P.PN ---
Subjective 59.-year-old male came in with fever and body aches. Patient does straight catheter is a has been doing this for years patient was admitted in the past for urinary tract infection with multiple bacteria drug-resistant Pseudomonas. Patient was seen in ER recently about the 3-4 days ago at the time urine cultures were done showing E. coli which is years. Coli. Patient is septic and hyponatremic. patient has mildly elevated troponin seconded to sepsis. Patient was later found to have bacteremia with gram-negative rods. Patient was started on meropenem because of ESBL Zosyn and vancomycin will risk and urine. Patient does have a blister in the left leg although doesn't appear to be infected and the right leg there is some redness in the first toe but doesn't appear to be infected either. There is mild elevation of BNP there is a concern about the congestive heart failure because of bronchovascular prominence on the chest x-ray. 06/17/2019 Patient is lying in bed in a semi-upright position and is stating he is short of breath with no improvement from yesterday. Blood cultures continue to show E. coli and repeat blood cultures will be done. Infectious disease is following. Cardiology is also following. Patient is currently maintained on IV antibiotics in the form of meropenem and will continue at this time. Patient will also continue on IV diuresis. Repeat chest x-ray today shows multifocal centralize patchy opacities that may represent pulmonary edema. Patient normally straight caths himself a few times a day but has been having difficulty given his current situation and worsening shortness of breath and an indwelling Du catheter was placed. Patient does have a history of frequent urinary tract infections. 06/18/2019 Patient is lying in bed stating that his shortness of breath has slightly improved. Blood cultures continue to show E. coli with repeat blood cultures from the 30 being negative thus far. Will repeat blood cultures daily until clearance. Infectious disease is following. Antibiotics have been transitioned to ceftriaxone and will continue at this time. Patient will likely need IV antibiotic therapy in the outpatient setting due to bacteremia. Patient denies any chest pain or palpitations at this time. Patient is afebrile. Patient denies any nausea or vomiting and has been tolerating diet. Patient's IV diuretics are being transitioned oral today. 06/19/2019 No overnight events patient is clinically doing well abdominal CAT scan was obtained to rule out any intra-abdominal process contributing to his sepsis but the patient has an incidental finding of a cyst in the left kidney because of which ultrasound was ordered to see if it's a simple cyst. Constitutional: Denied any fatigue denied any fever. Cardio vascular: denied any chest pain, palpitations Gastrointestinal denied any nausea vomiting Pulmonary: Denied any shortness of breath cough Neurologic denied any new focal deficits All inpatient medications were reviewed and appropriate changes in these medications as dictated in the interval history and assessment and plan. Objective - Vital Signs Vital signs: Vital Signs Temp 97.4 F L 06/19/19 08:15 Pulse 80 06/19/19 11:10 Resp 16 06/19/19 11:10 BP 125/65 06/19/19 11:10 Pulse Ox 91 L 06/19/19 11:10 Intake & Output 06/18/19 06/19/19 06/19/19 18:59 06:59 18:59 Intake Total 1178 600 290 Output Total 650 500 Balance 528 100 290 Weight 153.5 kg Intake: Intake, IV Titration 100 50 Amount Meropenem 1 gm In Sodium 100 Chloride 0.9% 100 ml @ 200 mls/hr IVPB Q8H [facility] Rx#:[id number] cefTRIAXone 2 gm In 50 Sodium Chloride 0.9% 50 ml @ 100 mls/hr IVPB Q24HR [facility] Rx#:[id number] Oral 1078 600 240 Output: Urine 650 500 Other: Voiding Method Indwelling Catheter Indwelling Catheter Indwelling Catheter - Exam GENERAL: The patient is alert and oriented x3, not in any acute distress. Obese HEENT: Pupils are round and equally reacting to light. EOMI. No scleral icterus. No conjunctival pallor. Normocephalic, atraumatic. No pharyngeal erythema. No thyromegaly. CARDIOVASCULAR: S1 and S2 present. No murmurs, rubs, or gallops. PULMONARY: Diminished breath sounds at the bases, no wheezing or crackles noted. ABDOMEN: Soft, nontender, nondistended, normoactive bowel sounds. No palpable organomegaly. MUSCULOSKELETAL: No joint swelling or deformity. EXTREMITIES: No cyanosis, clubbing, or pedal edema. NEUROLOGICAL: Gross neurological examination did not reveal any new focal deficits. Patient does have paraplegia of lower limbs SKIN: Patient has a blister on the left calcaneus and some redness in the right great toe - Labs CBC & Chem 7: 06/19/19 06:38 06/19/19 06:38 Labs: Abnormal Lab Results - Last 24 Hours (Table) 06/18/19 06/18/19 06/19/19 Range/Units 17:38 20:18 06:20 WBC (3.8-10.6) k/uL RBC (4.30-5.90) m/uL Hgb (13.0-17.5) gm/dL Hct (39.0-53.0) % Neutrophils # (1.3-7.7) k/uL Lymphocytes # (1.0-4.8) k/uL Basophils # (0-0.2) k/uL Sodium (137-145) mmol/L Potassium (3.5-5.1) mmol/L BUN (9-20) mg/dL Creatinine (0.66-1.25) mg/dL Glucose (74-99) mg/dL POC Glucose (mg/dL) 272 H 245 H 285 H (75-99) mg/dL Calcium (8.4-10.2) mg/dL 06/19/19 06/19/19 06/19/19 Range/Units 06:38 06:38 11:38 WBC 13.0 H (3.8-10.6) k/uL RBC 4.15 L (4.30-5.90) m/uL Hgb 12.2 L (13.0-17.5) gm/dL Hct 37.4 L (39.0-53.0) % Neutrophils # 10.3 H (1.3-7.7) k/uL Lymphocytes # 0.8 L (1.0-4.8) k/uL Basophils # 0.4 H (0-0.2) k/uL Sodium 136 L (137-145) mmol/L Potassium 3.4 L (3.5-5.1) mmol/L BUN 24 H (9-20) mg/dL Creatinine 0.40 L (0.66-1.25) mg/dL Glucose 275 H (74-99) mg/dL POC Glucose (mg/dL) 296 H (75-99) mg/dL Calcium 7.7 L (8.4-10.2) mg/dL Microbiology - Last 24 Hours (Table) 06/17/19 05:21 Blood Culture - Preliminary Blood No Growth after 48 hours 06/18/19 06:02 Blood Culture - Preliminary Blood No Growth after 24 hours Assessment and Plan Plan: -Severe sepsis and bacteremia secondary to possible urinary tract infection patient has gram-negative rods most probably E. coli which he had a urinary tract infection recently patient was switched to meropenem because of the is pale, lying the urine -Hyponatremia possibility of hypervolemic hyponatremia , patient will be continue on Lasix patient is clinically doing well. -Congestive heart failure chronic systolic dysfunction with possibly of mild acute exacerbation -Elevated troponin secondary to sepsis cardiology was consulted. -Type 2 diabetes mellitus: Patient will be resumed on his home regimen along with sliding scale -DVT in the past presently not on any anticoagulation -Paraplegia: Supportive care for that -DVT prophylaxis with Lovenox and GI prophylaxis with Pepcid
--- NOTE | 2019-06-19 15:47 | US ---
EXAMINATION TYPE: US kidneys/renal and bladder DATE OF EXAM: 06/19/2019 COMPARISON: 06/18/2019 and 06/19/2019 CLINICAL HISTORY: 59-year-old male cyst. TECHNIQUE: Multiple sonographic images of the kidneys and bladder are obtained. 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 Technically difficult study. Difficu lt to asses left kidney; exam done portable, patient unable to move adequately for the examiner, diff icult to reach left kidney, let alone assess. Right Kidney: Prominent in size. No hydronephrosis. Left Kidney: Prominent in size. No evidence of hydronephrosis. The questioned left kidney lesion is n ot seen due to above exam limitations Bladder: Du, bladder not seen IMPRESSION: 1. No hydronephrosis. 2. 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 Unable to visualize the question ed left kidney lesion. Three-month follow-up CT or MRI is recommended.
[2019-06-19 16:49] LABS: Glucose,Whole Blood 329 mg/dL (75-99)
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
[2019-06-19 20:50] LABS: Glucose,Whole Blood 304 mg/dL (75-99)
[2019-06-19] MEDS ORDERED: INSULIN DETEMIR (LEVEMIR) 100 UNIT/ML SYR SQ SCH (21:00)
--- NOTE | 2019-06-19 23:52 | PN ---
PROGRESS NOTE . DATE OF SERVICE: 06/19/2019. REASON FOR FOLLOWUP: Urinary E coli bacteremia urinary versus abdominal source. INTERVAL HISTORY: The patient is currently afebrile, has been breathing comfortably. The patient denies having any chest pain. No shortness of breath. No cough. No nausea, vomiting. No abdominal pain or diarrhea. PHYSICAL EXAMINATION: Blood pressure 96/51 with a pulse of 83. Temperature 97.4. He is 90% on room air. General description is a middle-aged male lying in bed in no distress. Respiratory system: Unlabored breathing clear to auscultation anteriorly. Heart S1, S2. Regular rate and rhythm. Abdomen soft, some tenderness. LABS: White count is down to 13,000. His creatinine 0.40. Blood culture repeat has been negative. DIAGNOSTIC IMPRESSION AND PLAN: Patient with E coli bacteremia with concern for possible urinary source. The patient did have primary urinary symptoms. The urine cultures have been negative. His followup blood cultures have been negative. Patient currently on Rocephin 2 g daily along with Flagyl. Continue and monitor his clinical course closely. MMODL / IJN: [id number] /
[2019-06-20 05:58] LABS: Glucose,Whole Blood 190 mg/dL (75-99)
[2019-06-20] MEDS: INSULIN ASPART (NovoLOG) 100 UNIT/ML VIAL SQ SCH ×2 (06:34→12:50)
[2019-06-20] MEDS: CARVEDILOL 6.25 MG TAB PO SCH (06:36)
[2019-06-20 06:59] LABS: African American GFR (CKD) >90 (>60 ml/min/1.73 sqM); Anion Gap 8 mmol/L; Blood Urea Nitrogen 23 mg/dL (9-20); Carbon Dioxide 28 mmol/L (22-30); Chloride 99 mmol/L (98-107); Glucose 186 mg/dL (74-99); Non-African American GFR(CKD) >90 (>60 ml/min/1.73 sqM); Potassium 3.9 mmol/L (3.5-5.1); Sodium 135 mmol/L (137-145)
[2019-06-20] MEDS: ENOXAPARIN 40 MG/0.4 ML SYRINGE SQ SCH (07:41)
[2019-06-20] MEDS: FAMOTIDINE 20 MG TAB PO SCH (08:23)
[2019-06-20] MEDS: metroNIDAZOLE 500 MG TAB PO SCH (08:23)
[2019-06-20] MEDS: FUROSEMIDE 40 MG TAB PO SCH (08:23)
[2019-06-20 09:18] VITALS: TEMP 98.2
--- NOTE | 2019-06-20 11:05 | P.DS ---
Providers Date of admission: 06/17/19 09:15 Attending physician: Monroe Marvin Consults: 06/15/19 18:06 Consult Physician Stat Consulting Provider: Trevor Mtz Consult Reason/Comments: CHF, NSTEMI Do you want consulting provider notified?: Yes 06/16/19 01:26 Consult Physician Routine Consulting Provider: Pancho Triana Consult Reason/Comments: positive blood cultures Do you want consulting provider notified?: Yes, Notify in am Primary care physician: Rebecca Ghosh Hospital Course: 59.-year-old male came in with fever and body aches. Patient does straight catheter is a has been doing this for years patient was admitted in the past for urinary tract infection with multiple bacteria drug-resistant Pseudomonas. Patient was seen in ER recently about the 3-4 days ago at the time urine culture s were done showing E. coli which is years. Coli. Patient is septic and hyponatremic. patient has mildly elevated troponin seconded to sepsis. Patient was later found to have bacteremia with gram-negative rods. Patient was started on meropenem because of ESBL Zosyn and vancomycin will risk and urine. Patient does have a blister in the left leg although doesn't appear to be infected and the right leg there is some redness in the first toe but doesn't appear to be infected either. There is mild elevation of BNP there is a concern about the congestive heart failure because of bronchovascular prominence on the chest x-ray. 06/17/2019 Patient is lying in bed in a semi-upright position and is stating he is short of breath with no improvement from yesterday. Blood cultures continue to show E. coli and repeat blood cultures will be done. Infectious disease is following. Cardiology is also following. Patient is currently maintained on IV antibiotics in the form of meropenem and will continue at this time. Patient will also continue on IV diuresis. Repeat chest x-ray today shows multifocal centralize patchy opacities that may represent pulmonary edema. Patient normally straight caths himself a few times a day but has been having difficulty given his current situation and worsening shortness of breath and an indwelling Du catheter was placed. Patient does have a history of frequent urinary tract infections. 06/18/2019 Patient is lying in bed stating that his shortness of breath has slightly improved. Blood cultures continue to show E. coli with repeat blood cultures from the 30th being negative thus far. Will repeat blood cultures daily until clearance. Infectious disease is following. Antibiotics have been transitioned to ceftriaxone and will continue at this time. Patient will likely need IV antibiotic therapy in the outpatient setting due to bacteremia. Patient denies any chest pain or palpitations at this time. Patient is afebrile. Patient de nies any nausea or vomiting and has been tolerating diet. Patient's IV diuretics are being transitioned oral today. 06/19/2019 No overnight events patient is clinically doing well abdominal CAT scan was obtained to rule out any intra-abdominal process contributing to his sepsis but the patient has an incidental finding of a cyst in the left kidney because of which ultrasound was ordered to see if it's a simple cyst. 06/20/2019 Patient is at his baseline patient the feels better today. Patient will be discharged home patient blood cultures showed E. coli which is sensitive to cephalosporin including cefuroxime patient was discharged on Ceftin for 10 days completed a 14 day of therapy and infectious is also recommending metronidazole which will be prescribed for 10 more days patient is euvolemic regarding his heart failure patient will be discharged on 40 mg daily of Lasix patient follows cardiology infectious disease and prior PCP as an outpatient. GENERAL: The patient is alert and oriented x3, not in any acute distress. Obese HEENT: Pupils are round and equally reacting to light. EOMI. No scleral icterus. No conjunctival pallor. Normocephalic, atraumatic. No pharyngeal erythema. No thyromegaly. CARDIOVASCULAR: S1 and S2 present. No murmurs, rubs, or gallops. PULMONARY: Diminished breath sounds at the bases, no wheezing or crackles noted. ABDOMEN: Soft, nontender, nondistended, normoactive bowel sounds. No palpable organomegaly. MUSCULOSKELETAL: No joint swelling or deformity. EXTREMITIES: No cyanosis, clubbing, or pedal edema. NEUROLOGICAL: Gross neurological examination did not reveal any new focal deficits. Patient does have paraplegia of lower limbs SKIN: Patient has a blister on the left calcaneus and some redness in the right great toe Assessment and Plan Plan: -Severe sepsis and bacteremia secondary to possible urinary tract infection patient has E. coli which he had a urinary tract infection, since to ceph alosporin and patient will be discharged today. -Hyponatremia possibility of hypervolemic hyponatremia , resolved now -Congestive heart failure chronic systolic dysfunction EF of around 45-50% with mild acute exacerbation patient is presently euvolemic -Elevated troponin secondary to sepsis -Type 2 diabetes mellitus: -DVT in the past presently not on any anticoagulation -Paraplegia: Supportive care for that Patient Condition at Discharge: Good Plan - Discharge Summary Discharge Rx Participant: No New Discharge Prescriptions: New Bisacodyl [Dulcolax] 10 mg RECTAL BID PRN #30 supp PRN Reason: Constipation Furosemide [Lasix] 40 mg PO DAILY #30 tab Insulin Detemir (Levemir) [Levemir] 28 unit SQ HS #1 syr Metoprolol Succinate (ER) [Toprol Xl] 50 mg PO DAILY #30 tab Cefuroxime Axetil [Ceftin] 500 mg PO BID 10 Days #20 tab metroNIDAZOLE [Flagyl] 500 mg PO Q8HR #30 tab Continue sitaGLIPtin [Januvia] 100 mg PO DAILY Lisinopril [Prinivil] 5 mg PO DAILY Discontinued Pioglitazone HCl/Metformin HCl [Actoplus Met 15 mg-500 mg Tab] 1 tab PO AC- TID Nitrofurantoin Monohyd/M-Cryst [Macrobid] 100 mg PO Q12HR #19 cap Discharge Medication List Lisinopril [Prinivil] 5 mg PO DAILY 06/15/19 [History] sitaGLIPtin [Januvia] 100 mg PO DAILY 06/15/19 [History] Bisacodyl [Dulcolax] 10 mg RECTAL BID PRN #30 supp 06/20/19 [Rx] Cefuroxime Axetil [Ceftin] 500 mg PO BID 10 Days #20 tab 06/20/19 [Rx] Furosemide [Lasix] 40 mg PO DAILY #30 tab 06/20/19 [Rx] Insulin Detemir (Levemir) [Levemir] 28 unit SQ HS #1 syr 06/20/19 [Rx] Metoprolol Succinate (ER) [Toprol Xl] 50 mg PO DAILY #30 tab 06/20/19 [Rx] metroNIDAZOLE [Flagyl] 500 mg PO Q8HR #30 tab 06/20/19 [Rx] Follow up Appointment(s)/Referral(s): Trevor Mtz MD [STAFF PHYSICIAN] - 07/02/19 2:00 pm [facility], [NON-STAFF] - [facility] [NON-STAFF] - Rebecca Ghosh MD [Primary Care Provider] - 1-2 days Pancho Triana MD [STAFF PHYSICIAN] - 1 Week Patient Instructions/Handouts: Sepsis (GEN), Bacteremia (DC) Discharge Disposition: HOME WITH HOME HEALTH SERVICES
[2019-06-20 11:49] LABS: Glucose,Whole Blood 255 mg/dL (75-99)
[2019-06-20 12:28] VITALS: BP 117/75; PULSE 83; RESP 16
[2019-06-20] MEDS: LISINOPRIL 5 MG TAB PO SCH (12:50)
[2019-06-21 11:15] LABS: Hemoglobin A1C 7.9 % (4.0-6.0)
--- NOTE | 2019-06-22 11:14 | CDI ---
Documentation Clarification Form Date: 06/22/19 From: Laura Zhang Phone: If you have a question about this query, please contact Steffanie Gonzalez, [employer] at [phone] between 8am and 5pm. Admit Date: 06/17/19 Discharge Date: 06/20/19 Patient Name: Florian Narvaez Visit Number: [id number] ATTENTION: The Clinical Documentation Specialists (CDI) and [facility] Coding Staff appreciate your assistance in clarifying documentation. Please respond to the clarification below the line at the bottom and electronically sign. The CDI & [facility] Coding staff will review the response and follow-up if needed. Please note: Queries are made part of the Legal Health Record. If you have any questions, please contact the author of this message via ITS. Dear Dr. Bela Uriarte, Bacteremia documented in the H&P, consult, multiple PNs and DS. Sepsis is documented in the ED note, H&P, multple PNs and DS. Recurrent UTI's from self- caths. Patient history/risk factors: Recurrent UTI's from self-cath, paraplegia, neurogenic bladder, acute on chronic systolic CHF w HTN Clinical Indicators: Fever & body aches. T-100.1-101.9, P-122, R-19, BP-124/64 WBC: 10.7-14.3 Left Shift :8.0-12.1 ; Blood Culture: Grew E Coli ID Consult: gram negative bacteremia Treatment: IV fluids. Antibiotics: IV Rocephin, IV Zosyn, IV Zithromax, IV Vanco, IV Merrem Bacteremia is considered a lab finding. Please clarify if that lab finding is clinical indicator of a more definitive medical diagnosis such as: Sepsis due to E coli Sepsis due to self catheterizations & E coli Infectious Process, please specify: Other, please specify Unable to determine this query is not necessary as I already dictated UTI is secondary to self-catheterization MTDD
== END 2019-06-20 13:53 | disposition home health service (06) | DRG 698 ==
LOC: EC 11:44 → 3SCARD 18:17 → OBSVTOIN 06-17 09:15 → 3SCARD 06-19 17:15
PROVIDERS: ADMIT Hospitalist; ATTEND Hospitalist
PROC: 05HC33Z Insertion of Infusion Device into Left Basilic Vein, Percutaneous Approach (ICD-10-PCS; principal; 2019-06-18 10:55)
DX: T83.598A Infection and inflammatory reaction due to other prosthetic device, implant and graft in urinary system, initial encounter (principal); A41.51 Sepsis due to Escherichia coli [E. coli]; R65.20 Severe sepsis without septic shock; I21.A1 Myocardial infarction type 2; I50.23 Acute on chronic systolic (congestive) heart failure; I42.9 Cardiomyopathy, unspecified; G82.20 Paraplegia, unspecified; E87.1 Hypo-osmolality and hyponatremia; N39.0 Urinary tract infection, site not specified; Z16.12 Extended spectrum beta lactamase (ESBL) resistance; I11.0 Hypertensive heart disease with heart failure; E11.9 Type 2 diabetes mellitus without complications; N31.9 Neuromuscular dysfunction of bladder, unspecified; S90.822A Blister (nonthermal), left foot, initial encounter; E78.1 Pure hyperglyceridemia; N28.1 Cyst of kidney, acquired; R33.9 Retention of urine, unspecified; Z79.84 Long term (current) use of oral hypoglycemic drugs; Z79.899 Other long term (current) drug therapy; Z86.718 Personal history of other venous thrombosis and embolism; Z87.440 Personal history of urinary (tract) infections; Z87.891 Personal history of nicotine dependence; Z87.442 Personal history of urinary calculi; Z86.14 Personal history of Methicillin resistant Staphylococcus aureus infection; Z86.19 Personal history of other infectious and parasitic diseases; Z90.49 Acquired absence of other specified parts of digestive tract; Z98.890 Other specified postprocedural states; Z88.2 Allergy status to sulfonamides; Z80.51 Family history of malignant neoplasm of kidney; Z82.49 Family history of ischemic heart disease and other diseases of the circulatory system
CPT/HCPCS: 36410; 36415; 51702; 71046; 71275; 74177; 76770; 76937; 80048; 80053; 80202; 81001; 83036; 83605; 83880; 84443; 84484; 85025; 85610; 85730; 87040; 87077; 87086; 87186; 87502; 93005; 93306; 94760; 96361; 96365; 96366; 96368; 96375; 96376; 99285